=== PATIENT | female | born 1935 | race Caucasian/White ===

== ENCOUNTER → 2017-04-29 | Outpatient (CLI) | payer OTHER, MEDICAID | LOC: FIMAGING 10:01 | PROVIDERS: ATTEND Physician Assistant Medical | DX: G31.9 Degenerative disease of nervous system, unspecified (principal); F03.90 Unspecified dementia, unspecified severity, without behavioral disturbance, psychotic disturbance, mood disturbance, and anxiety; F32.9 Major depressive disorder, single episode, unspecified ==

== ENCOUNTER → 2018-04-27 | Outpatient (CLI) | payer OTHER, MEDICAID | LOC: FIMAGING 06:45 | PROVIDERS: ATTEND Physician Assistant Medical | DX: M25.562 Pain in left knee (principal); M25.462 Effusion, left knee; M25.862 Other specified joint disorders, left knee ==

== ENCOUNTER → 2018-07-03 | Outpatient (CLI) | payer OTHER, MEDICAID | LOC: BMCIMAGING 15:16 | PROVIDERS: ATTEND Physician Assistant Medical | DX: M81.0 Age-related osteoporosis without current pathological fracture (principal) ==